=== PATIENT | female | born 2000 | race Caucasian/White ===

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

== ENCOUNTER → 2020-01-17 13:09 | Outpatient (BNVA) | payer MEDICAID, SELFPAY | PROVIDERS: Family Provider Nurse Practitioner Family; PCP Nurse Practitioner Family; Visit Provider Nurse Practitioner Women's Health | DX: O26.899 Other specified pregnancy related conditions, unspecified trimester (principal); Z67.91 Unspecified blood type, Rh negative | CPT/HCPCS: 81000 ==

== ENCOUNTER → 2020-01-30 16:02 | Outpatient (BNVA) | payer MEDICAID, SELFPAY | PROVIDERS: Family Provider Nurse Practitioner Family; PCP Nurse Practitioner Family; Visit Provider Obstetrics & Gynecology | DX: Z34.83 Encounter for supervision of other normal pregnancy, third trimester (principal) | CPT/HCPCS: 81000; 87081 ==

== ENCOUNTER → 2020-02-06 15:41 | Outpatient (BNVA) | payer MEDICAID, SELFPAY | PROVIDERS: Family Provider Nurse Practitioner Family; PCP Nurse Practitioner Family; Visit Provider Obstetrics & Gynecology | DX: O26.893 Other specified pregnancy related conditions, third trimester (principal); Z67.91 Unspecified blood type, Rh negative; Z3A.37 37 weeks gestation of pregnancy | CPT/HCPCS: 81000 ==

== ENCOUNTER → 2020-02-14 15:22 | Outpatient (BNVA) | payer MEDICAID, SELFPAY | PROVIDERS: Family Provider Nurse Practitioner Family; PCP Nurse Practitioner Family; Visit Provider Obstetrics & Gynecology | DX: O09.893 Supervision of other high risk pregnancies, third trimester; Z67.91 Unspecified blood type, Rh negative; Z3A.38 38 weeks gestation of pregnancy | CPT/HCPCS: 81000; 83986 ==

== ENCOUNTER 2020-02-22 08:37 | Inpatient (IN) | payer MEDICAID, SELFPAY ==
[2020-02-21] VITALS (14 sets, daily range): BP systolic 0–144; BP diastolic 0–90; PULSE 67–84; RESP 18; TEMP 36.9–37.1; BMI 25.7
[2020-02-22] VITALS (81 sets, daily range): BP systolic 0–140; BP diastolic 0–100; PULSE 64–88; RESP 16–18; TEMP 36.5–37; O2SAT 98–100; BMI 25.7
[2020-02-22 08:03] LABS: Basophils % 0.2 %; Eosinophils # 0.1 10^3/uL (0.0-0.8); Hemoglobin 10.9 g/dL (11.5-15.3); Lymphocytes # 1.9 10^3/uL (1.5-6.5); Lymphocytes % 23.3 %; Mean Corpuscular HGB Conc 31.1 g/dL (30.0-36.0); Mean Corpuscular Hemoglobin 26.7 pg (28.0-34.0); Mean Corpuscular Volume 85.8 fL (81-99); Mean Platelet Volume 13.1 fL (7.4-10.4); Monocytes # 0.9 10^3/uL (0.2-0.9); Monocytes % 10.6 %; Neutrophils # 5.37 10^3/uL (1.8-8.0); Neutrophils % 64.7 %; Nucleated Red Blood Cells % 0 %; Platelet Count 188 10^3/cmm (130-400); Positive M 1; Red Blood Count 4.08 10^6/uL (4.1-5.3); White Blood Count 8.3 10^3/uL (4.5-13.0)
[2020-02-22] MEDS: oxytocin 30 UNIT/500 ML BAG IV (13:15)
[2020-02-22] MEDS: dextrose 5%-lactated ringers 1,000 ML 125 ML IV (13:23)
[2020-02-22] MEDS: lactated ringers 1,000 ML 999 ML IV (15:23)
--- NOTE | 2020-02-22 16:05 | ANES.PREANE2 ---
Pre-Anesthetic Assessment Pre-Anesthetic Assessment: Height/Weight: Height 1.6 m Weight 65.771 kg Temp Pulse Resp BP 98.6 F 73 16 0/0 02/22/20 13:30 02/22/20 15:49 02/22/20 13:30 02/22/20 16:03 Preop Diagnosis: labor Proposed Procedure: Epidural Was Beta Elia taken within 24 hours: N/A Last Intake: 16:00 Social: Social History: No alcohol and No tobacco Exam: Pre-Anes Outpt Exam: alert, oriented x 3, clear to auscultation bilaterally and regular rate & rhythm Airway: Submandibular: WNL Cervical ROM: WNL MP: 2 Dentition: Full Pulmonary: Pulmonary: None reported CV/HEM: CV/HEM: None reported : : None reported Hepatic: Hepatic: None reported GI: GI: None reported Metabolic: Metabolic: None reported Musc/skel: Musc/skel: None reported Neuropsych: Neuropsych: None reported Anesthetic Plan: ASA status: 2 Anesthesia: Anesthesia Evaluation and Eval. for regional block Risk of > 500 ml blood loss (7ml/kg in children): No Meds/Allergies Current Medications: Current Medications Generic Name Dose Route Start Last Admin Trade Name Freq PRN Reason Stop Dose Admin Dextrose/Lactated Ringer's 1,000 mls @ 125 m ls/hr 02/22/20 07:45 02/22/20 15:24 Dextrose 5%-Lact ated Ringers IV 0 mls/hr .Q8H AIMEE Infusion Oxytocin 30 unit in 500 ml s @ 1 mls/hr 02/22/20 12:15 02/22/20 15:15 Pitocin IV 9 milliunit/min .Q24H AIMEE 9 mls/hr Titration Protocol 1 MILLIUNIT/MIN Lactated Ringer's 1,000 mls @ 999 m ls/hr 02/22/20 12:19 02/22/20 15:23 Lactated Ringers IV 999 mls/hr .Q1H1M PRN Administration hypotension PFSH Anesthesia PFSH: Medical History Encounter for supervision of other normal , second trimester Rh negative state in antepartum period Short interval between pregnancies affecting in first trimester, antepartum Surgical History History of appendectomy 08/2017 in [facility] Family History Mother Hypertension Father Hypertension Aneurysm Grandmother Hypertension Aneurysm Social History Smoking and tobacco status: former smoker Quit status (tobacco): has quit using tobacco Alcohol intake: never Female Reproductive History: : 2 Data Anesthesia CBC & Chem 7: 02/22/20 06:30 Other Labs: Laboratory Results - last 48 hr 02/22/20 06:30 WBC 8.3 RBC 4.08 L Hgb 10.9 L Hct 35.0 L MCV 85.8 MCH 26.7 L MCHC 31.1 RDW 13.0 Plt Count 188 MPV 13.1 H Neut % (Auto) 64.7 Lymph % (Auto) 23.3 [place] % (Auto) 10.6 Eos % (Auto) 1.0 Baso % (Auto) 0.2 Neut # (Auto) 5.37 Lymph # (Auto) 1.9 [place] # (Auto) 0.9 Eos # (Auto) 0.1 Baso # (Auto) 0.0 Nucleated RBC % (auto) 0 Nucleated RBCs # 0.0 Cardiac Studies: No Data to Display
--- NOTE | 2020-02-22 17:17 | ANES.PROC ---
Anesthesia Procedures Procedure/Date: 02/22/20 Epidural: Time Out Performed: Yes Consents Signed: Procedure Consent Consent: requested by attending/covering physician, from patient, risks and benefits reviewed and patient agrees to proceed Lumbar Level: L3-L4 Epidural position: sitting Epidural procedure: sterile prep of area (betadine), 1% lidocaine to numb the area (3ml), 18 g needle, neg for paresthesia, test dose given, 1.5% xylocaine 1:200k epi (5ml), 0.2% Ropivacaine bolus ml (5ml), placed PCEA, no systemic response, sterile dressing applied, L.U.D. no apparent complications and 0.2% Ropiavacaine @ mls/hr (10ml/hr)
--- NOTE | 2020-02-22 19:50 | P.PCNOB_ITS ---
Delivery Note: Date of delivery: February 22, 2020 Pre-delivery diagnoses: 1. Term at 39-5/7 weeks gestation 2. Rh negative status in third trimester. Post-delivery diagnoses: 1. Term at 39-5/7 weeks gestation. 2. Rh negative status - delivered. 3. Viable male . Procedure: Spontaneous vaginal delivery Op report anesthesia: Epidural Delivering Physician: Harinder Garcia MD Estimated blood loss (mL): 100 Pre-Delivery Course: Patient is a 19-year-old white female 2, para 1-0-0-1 with an LMP of 04/30/2019 and an EDC of 02/24/2020 based on ultrasound, which placed her at 39-4/7 weeks gestation at time of admission. Patient presented to labor and delivery at 16:40 on 02/21/2020 with complaints of contractions. She was reporting contractions every [address] arted at 6:00 in the morning. On initial exam, she was noted to be uneffaced and 1 cm dilated at a -3 station. She was watched for approximately 4 hours and made cervical change to 40% effaced and 1 to 2 cm dilation. Because things were going slow at the time, she was given morphine and Phenergan as a therapeutic sleeper. Patient slept through the night. By the morning of 02/21, she was 60% effaced and 2 cm dilated. She made minimal progression through the morning and had Pitocin started. She became more uncomfortable during the afternoon and had epidural placed.By mid afternoon, she started making cervical change. She had spontaneous rupture of membranes at 17:55 and was 90% effaced and 5 cm dilated prior to that. After rupturing, cervix had shrunk to 4 cm. The cervix then rapidly progressed and she was found to be completely dilated by 19:20. Following rupture of membranes, she developed variable decelerations with each contraction. Delivery: Patient started pushing at 19:27 and delivered at 19:37 as a spontaneous vaginal delivery of an occiput anterior male over an intact perineum under epidural anesthesia. Following delivery of the infant's head, the right hand was adjacent to the left cheek. The arm was swept out and the rest the baby delivered atraumatically with the left shoulder anterior. No nuchal cords were noted. The infant was placed on the mother's abdomen where the cord was clamped. It was cut by the reported father of the baby. Baby was spontaneously crying. Baby was left in the care of the waiting nurses. Cord blood was obtained. Pitocin bolus was started. Placenta delivered intact by simple expression at 19:42. The cervix and vagina were palpated and noted to be intact. The labia were inspected and noted to be intact except for a first- degree midline hymenal ring laceration and a first-degree right periurethral laceration. Both of these were hemostatic and required no repair. FINDINGS 1. Viable male weighing 7 lbs 10 oz (3465 g) with a length of 21 inches and Apgars of 9 at 1 minute and 9 at 5 minutes. 2. Three-vessel cord with no loops of nuchal cord noted. 3. Normal-appearing placenta with an eccentric cord insertion. Post-Delivery Status: Mother and infant were left to recover in satisfactory c ondition. A&P Assessment and plan (1) Term delivered: Status: Acute (2) Rh negative, delivered, current hospitalization: Status: Acute Coding Level of Care Code Acute Channel Machine Operator for Chg Fwd Diagnoses Term delivered O80 Rh negative, delivered, current hospitalization O26.899; Z67.91
[2020-02-23 00:40] VITALS: BP 122/72; PULSE 82; RESP 16; TEMP 36.7
[2020-02-23 01:40] VITALS: BP 121/72; PULSE 69; RESP 16; TEMP 36.6
--- NOTE | 2020-02-23 07:12 | PM.PN ---
Subjective Subjective: Interval history: Denies any problems or concerns. Reports pain is been well controlled on ibuprofen. Denies any lightheadedness or dizziness with ambulation. Denies any shortness of breath or chest pains. Reports tolerating regular diet without nausea or vomiting. Denies any problems with urination. States bleeding has decreased. Vitals/I&O/Wt Last Vital Signs Temp 97.8 F 02/23/20 01:40 Pulse 69 02/23/20 01:40 Resp 16 02/23/20 01:40 BP 121/72 02/23/20 01:40 Pulse Ox 98 02/22/20 16:32 02/22/20 02/23/20 02/23/20 22:59 06:59 14:59 Intake Total 259.083 / 261.583 Output Total 500 / 500 500 / 1000 Balance -240.917 / -238.417 -500 / -738.417 Weight last 48 hrs Weight 145 lb Weight 145 lb Physical Exam Const: COMMON NORMALS: no acute distress, average body habitus, alert and well nourished GENERAL APPEARANCE: well developed ORIENTATION/CONSCIOUSNESS: Yes oriented to person, Yes oriented to place and Yes oriented to time Resp: COMMON NORMALS: normal respiratory effort and clear to auscultation bilaterally AUSCULTATION: clear to auscultation bilaterally Cardio: COMMON NORMALS: regular rate, regular rhythm, No gallops present (Cardio) and No rub (Cardio) RATE: regular rate RHYTHM: regular rhythm GI: COMMON NORMALS: Soft to palpation, non-tender, No hepatosplenomegaly present and no masses (Except for nontender, firm uterus approximately 2 fingerbreadths below the umbilicus) AUSCULTATION: Yes normoactive bowel sounds PALPATION: Yes Soft to palpation, Yes No hepatosplenomegaly present and No Hernia present : EXTERNAL FEMALE EXAM: No Hernia present Extremity: COMMON NORMALS: no calf tenderness NARRATIVE EXTREMITY EXAM: Trace lower extremity edema bilaterally Neuro: SENSORIUM/ORIENTATION: Yes alert, Yes oriented to person, Yes oriented to place and Yes oriented to time Psych: COMMON NORMALS: normal affect MOOD & AFFECT: Yes euthymic mood Urinary Catheter Management^: Colon: Cath Placed During This Visit: yes Urinary Catheter Date of Insertion: 02/22/20 Urinary Catheter Time of Insertion: 16:41 Data : 07/22/20 06:30 A&P Assessment and plan (1) Term delivered: day 1, approximately 11 hours status post vaginal delivery Patient doing well at this time. Continue usual care. Probable discharge to home this evening. Discharge instructions discussed with her. Status: Acute (2) Rh negative, delivered, current hospitalization: Status: Acute (3) Anemia during , delivered, current hospitalization: Patient found to be mildly anemic on admission hemogram. CBC pending for today. Patient most likely will be going home on iron in addition to the vitamins. She is currently asymptomatic. Status: Acute Attestations Medical Necessity Statement*: Patient approximately 11 hours status post vaginal delivery. Coding Level of Care Code Acute Sampler And Test Preparer for [facility] Fwd Exam Detailed Diagnoses Term delivered O80 Rh negative, delivered, current hospitalization O26.899; Z67.91 Anemia during , delivered, current hospitalization O99.02
[2020-02-23 08:45] LABS: Hematocrit 35.6 % (37.0-47.0); Hemoglobin 11.3 g/dL (11.5-15.3); Mean Corpuscular HGB Conc 31.7 g/dL (30.0-36.0); Mean Corpuscular Hemoglobin 27.2 pg (28.0-34.0); Mean Corpuscular Volume 85.6 fL (81-99); Mean Platelet Volume 12.5 fL (7.4-10.4); Platelet Count 181 10^3/cmm (130-400); Red Blood Count 4.16 10^6/uL (4.1-5.3); Red Cell Distribution Width 13.2 % (12.1-15.1); White Blood Count 10.8 10^3/uL (4.5-13.0)
[2020-02-23] MEDS: prenatal vitamin Capsule 1 CAP PO (09:48)
[2020-02-23] MEDS: docusate sodium 100 mg Capsule PO (09:49)
[2020-02-23 09:51] VITALS: BP 121/89; PULSE 96; RESP 16; TEMP 36.7; O2SAT 96
[2020-02-23 15:53] VITALS: BP 137/90; PULSE 80; RESP 16; TEMP 36.6; O2SAT 98
--- NOTE | 2020-02-23 17:13 | PM.OBGYDC ---
Discharge Providers MONOMER RECOVERY OPERATOR Date of Admission: 02/22/20 08:37 Date of Discharge: 02/23/20 Attending Provider at Admission: Gina Elizabeth MD Attending Provider at Discharge: Harinder Garcia MD Primary Care Provider: COOPER Segal Diagnoses at Discharge Discharge Diagnosis (1) Term delivered: Status: Acute (2) Rh negative, delivered, current hospitalization: Status: Acute (3) Anemia during , delivered, current hospitalization: Status: Acute Reason for Visit Reason for Visit: Contractions Hospital Course Hospital Course: Patient is a 19-year-old white female 2, para 1-0-0-1 with an LMP of 04/30/2019 and an EDC of 02/24/2020 based on ultrasound, which placed her at 39-4/7 weeks gestation at the time of admission. She presented to labor and delivery on 02/21/2020 at 16:40 with complaint of contractions which had started at about 6:00 in the morning. She was initially 1 cm dilated and uneffaced. She was watched for approximately 4 hours and made slow cervical change. Since she was progressing so slowly, she was given a Phenergan and morphine sleeper and was slept through the night. In the morning of 02/21 she was 60% effaced and 2 cm dilated. She was started on Pitocin later in the morning due to making minimal change. She became more uncomfortable and had epidural placed. She started making cervical change and had spontaneous rupture membranes at 17:55. She was 5 cm dilated and 90% effaced at that time. She then rapidly progressed and was found to be completely dilated by 19:20. She started pushing at 19:27 and delivered at 19:37 as a spontaneous vaginal delivery of an occiput anterior male infant over an intact perineum under epidural anesthesia. Baby weighed 7 lbs 10 oz (3465 g) with a length of 21 inches and Apgars of 9 at 1 minute and 9 at 5 minutes. She had a first-degree hymenal ring laceration and a first-degree right periurethral laceration, both which were hemostatic and required no repair. Mother and did well following delivery. Day 1 Patient reported doing well. She denied problems with pain. She denied lightheadedness or dizziness with ambulation. She denied shortness of breath or chest pains. She reported tolerating a regular diet without nausea vomiting. She denied problems with urination. She reported that her bleeding had decreased. She was afebrile with stable vital signs. Activities were increased through the day. By the evening, she was requesting to go home. She was discharged to home. Discharge instructions discussed with her. She is to follow-up in the office in approximately 6 weeks for care. Information Peripartum Data: Infant Delivery Method: Vaginal complications: none Physical Exam Urinary Catheter Management^: Colon: Cath Placed During This Visit: yes Urinary Catheter Date of Insertion: 02/22/20 Urinary Catheter Time of Insertion: 16:41 Discharge Data Data Completed and Pending: Labs from last 24 hours 02/23/20 08:18 WBC 10.8 RBC 4.16 Hgb 11.3 L Hct 35.6 L MCV 85.6 MCH 27.2 L MCHC 31.7 RDW 13.2 Plt Count 181 MPV 12.5 H Vitals: Last Vital Signs Temp 97.9 F 02/23/20 15:53 Pulse 80 02/23/20 15:53 Resp 16 02/23/20 15:53 BP 137/90 02/23/20 15:53 Pulse Ox 98 02/23/20 15:53 Discharge Plan Discharge Patient Disposition: Home Condition: Stable Prescriptions: Continued prenat.vits,prasad,[id number] Tablet 1 tab PO DAILY RF: 0 Discharge Orders: Discharge Order (Routine); Ordered 02/23/20 Ordered By: Harinder Garcia Referrals: Michael Yang MD [Physician] - 6 Weeks Discharge Diet: Regular Discharge Activity: Resume usual activity Patient Instructions: OB Vaginal Deliveries - [facility] Activity Restrictions/Additional Instructions: May use [id number] ibuprofen 200 mg, 3 tablets 4 times a day or 4 tablets 3 times a day, as needed for pain. Discharge Attestations MONOMER RECOVERY OPERATOR Time Spent in Discharge Care*: less than 30 min Coding Level of Care Code Acute Roller Turner for Chg Fwd Diagnoses Term delivered O80 Rh negative, delivered, current hospitalization O26.899; Z67.91 Anemia during , delivered, current hospitalization O99.02
[2020-02-23 20:19] VITALS: BP 125/86; PULSE 85; RESP 16; TEMP 36.7
== END 2020-02-23 20:25 | disposition home or self-care (01) | DRG 807 ==
LOC: OPOB 08:38 → OBGYN 08:38
PROVIDERS: Obstetrics & Gynecology; Admitting Provider Obstetrics & Gynecology; Family Provider Nurse Practitioner Family; PCP Nurse Practitioner Family; Visit Provider Obstetrics & Gynecology
DX: O99.02 Anemia complicating childbirth (principal); Z37.0 Single live birth; D64.9 Anemia, unspecified; Z3A.39 39 weeks gestation of pregnancy; O70.0 First degree perineal laceration during delivery; O76 Abnormality in fetal heart rate and rhythm complicating labor and delivery
CPT/HCPCS: 12345; 36415; 51702; 59025; 59409; 85025; 85027; 99211; J2795

== ENCOUNTER → 2020-04-06 11:32 | Outpatient (BNVA) | payer MEDICAID, SELFPAY | PROVIDERS: Family Provider Nurse Practitioner Family; PCP Nurse Practitioner Family; Visit Provider Obstetrics & Gynecology | DX: Z01.812 Encounter for preprocedural laboratory examination (principal); Z30.9 Encounter for contraceptive management, unspecified | CPT/HCPCS: 81025 ==

== ENCOUNTER 2024-02-28 15:57 | Emergency (ER) | payer SELFPAY ==
[2024-02-28] VITALS (7 sets, daily range): BP systolic 125; BP diastolic 77; PULSE 76–91; RESP 17; TEMP 36.7; O2SAT 98–99; BMI 21.0
--- NOTE | 2024-02-28 16:07 | XRR_ITS ---
PROCEDURE INFORMATION: Exam: XR Left Knee Exam date and time: 02/28/2024 4:27 PM Age: 23 years old Clinical indication: Patient HX: Lt knee pain after horse landed on left leg; Open wound to left knee TECHNIQUE: Imaging protocol: Radiologic exam of the left knee. Views: 3 views. COMPARISON: No relevant prior studies available. FINDINGS: Bones/joints: Large left knee joint effusion. No dislocation. Nondisplaced fracture of the left lateral tibial plateau extending to the tibial spines with a small avulsed bone fragment at the tibial spines. Joint spaces are maintained. Normal bone mineralization. Soft tissues: Mild soft tissue swelling around the left knee. No radiopaque foreign body. XR/XR knee LT 3V* [id number] IMPRESSION: 1. Nondisplaced fracture of the left lateral tibial plateau extending to the tibial spines with a small avulsed bone fragment at the tibial spines. 2. Large left knee joint effusion. 3. Mild soft tissue swelling around the left knee.
--- NOTE | 2024-02-28 16:07 | CTR_ITS ---
PROCEDURE INFORMATION: Exam: CT Head Without Contrast Exam date and time: 02/28/2024 4:58 PM Age: 23 years old Clinical indication: Injury or trauma; Other: Horse wreck; Blunt trauma (contusions or hematomas); With loss of consciousness; Loss of consciousness for 30 minutes or less; Injury details: PT arrives via [facility] post fall of a horse. PT states she was riding her horse who got spooked and started running and tripped and fell with PT. Horse landed onto PT left leg. PT hit head and had loc but unsure how long. PT has multiple abrasions on hands, knees, and shoulder. PT has abrasion to left upper cheek. ; Additional info: Fall, head injury TECHNIQUE: Imaging protocol: Computed tomography of the head without contrast. Radiation optimization: All CT scans at this facility use at least one of these dose optimization techniques: automated exposure control; mA and/or kV adjustment per patient size (includes targeted exams where dose is matched to clinical indication); or iterative reconstruction. COMPARISON: No relevant prior studies available. RADIATION DOSE METRICS: Total DLP (mGy-cm): 979.58 FINDINGS: Brain: No acute intracranial hemorrhage. No acute infarct. No intra-axial or extra-axial masses. Duuqe-white matter differentiation is preserved. No cerebral edema. No extra-axial fluid collections. No midline shift. No evidence for Chiari 1 malformation. Cerebral ventricles: No hydrocephalus. Paranasal sinuses: Visualized paranasal sinuses are clear. Mastoid air cells: Visualized mastoid air cells are clear. Orbital cavities: No acute abnormality in the visualized orbits. Bones: Unremarkable. No acute fracture. Soft tissues: The extracranial soft tissues are unremarkable. CT/CT head wo con* [id number] IMPRESSION: Negative CT scan of the brain.
--- NOTE | 2024-02-28 16:09 | W.ED.TRAUMA ---
HPI - Trauma General: Chief Complaint: Trauma Stated Complaint: left knee pain s/p horse wreck Time Seen by Provider: 02/28/24 16:00 History of Present Illness: Healthy 23-year-old female who presents the emergency room after having an accident with her horse. Apparently some dogs chased the horse and it fell over and she rolled with it. Does not sound like it landed on her body. She has abrasions all over. Hands, arms, face, knees. She has no chest pain. No back pain. He reports he lost consciousness for maybe 30 seconds. She has had some mild nausea but no vomiting. No altered mental status. No focal motor deficits. Her main complaint is tenderness on the medial side of her left knee. There is a bruise there. Review of Systems Narrative: Constitutional symptoms: Negative except as documented in HPI. Skin symptoms: Negative except as documented in HPI. Eye symptoms: Negative except as documented in HPI. ENMT symptoms: Negative except as documented in HPI. Respiratory symptoms: Negative except as documented in HPI. Cardiovascular symptoms: Negative except as documented in HPI. Gastrointestinal symptoms: Negative except as documented in HPI. Genitourinary symptoms: Negative except as documented in HPI. Musculoskeletal symptoms: Negative except as documented in HPI. Neurologic symptoms: Negative except as documented in HPI. Psychiatric symptoms: Negative except as documented in HPI. Endocrine symptoms: Negative except as documented in HPI. [facility] ED PFSH: Medical History (Updated 02/28/24 @ 18:36 by Jacinda Reed MD) examination following vaginal delivery Short interval between pregnancies affecting in first trimester, antepartum Rh negative state in antepartum period Encounter for supervision of other normal , second trimester Surgical History History of appendectomy 08/2017 in [facility] Family History Mother Hypertension Father Hypertension Aneurysm Grandmother Hypertension Aneurysm Social History Smoking and tobacco/nicotine status: former use of tobacco/nicotine Quit status (tobacco/nicotine): has quit using Alcohol intake: never Substance/Drug Use: never Physical Exam Narrative: EXAM NARRATIVE: General: Alert, no acute distress. Skin: Warm, dry. Patient has abrasion on her left cheek, abrasions on her left knee. With 2 superficial lacerations on the left knee. There are some bruising on the medial side of the left knee. There is a mild abrasion on the right knee. There are several abrasions on her dorsal hands and fingers. Head: Normocephalic, atraumatic. Neck: Supple, trachea midline. No bony tenderness, no step-offs. I removed cervical collar. Back: No bruises. No abrasions. No bony tenderness. No step-offs. Eye: Extraocular movements are intact. Ears, nose, mouth and throat: mucosa moist. Cardiovascular: Regular, Normal peripheral perfusion. Respiratory: Lungs are clear to auscultation, respirations are non-labored, breath sounds are equal, Symmetrical chest wall expansion. Gastrointestinal: Soft, Nontender, Non distended Musculoskeletal: Normal ROM, no deformity. Neurological: Alert and oriented, No focal neurological deficit observed. Psychiatric: Cooperative, appropriate mood & affect. Course Vital Signs: Vital signs: Vital Signs Temperature 98.0 F 02/28/24 16:03 Pulse Rate 82 02/28/24 19:30 Respiratory Rate 17 02/28/24 16:38 Blood Pressure 125/77 02/28/24 16:03 Pulse Oximetry 98 02/28/24 19:30 Oxygen Delivery Me thod Room Air 02/28/24 16:03 MDM - Trauma Medical Decision Making X-ray of the right knee shows nondisplaced fracture of the left lateral tibial plateau. There is a large joint effusion. Orthopedics recommends CT scan. CT head: No acute intracranial process. no intracranial hemorrhage, no evidence of infarct. no evidence of acute fracture.This was reviewed and interpreted by myself the ER physician. CT of the left knee: Mildly comminuted nondisplaced fracture of the lateral plateau of the left tibia. This extends across midline to the posterior aspect of the left medial tibial plateau. There is a small avulsed bone fragment off the lateral left tibial spine. This was reviewed and interpreted by myself the emergency room physician. I also reviewed the radiology report. Assessment and plan: Tibial plateau fracture Head injury with loss of consciousness Thrown from horse Multiple skin abrasions over numerous sites of the body. -[place] in the emergency room. Toradol and Zofran. - Discharged home - Discussed plan with patient. Answered any questions. - Evaluation and treatment of this problem were appropriate in the emergency setting. Lab Data Radiology Impressions Head CT 02/28/24 16:07 IMPRESSION: Negative CT scan of the brain. Knee X-Ray 02/28/24 16:07 IMPRESSION: 1. Nondisplaced fracture of the left lateral tibial plateau extending to the tibial spines with a small avulsed bone fragment at the tibial spines. 2. Large left knee joint effusion. 3. Mild soft tissue swelling around the left knee. Knee CT 02/28/24 18:15 IMPRESSION: 1. Mildly comminuted, nondisplaced fracture of the lateral plateau of the left tibia. The fracture extends across the midline to the posterior aspect of the left medial tibial plateau. There is a small avulsed bone fragment off of the lateral left tibial spine, the remainder of the fracture is nondisplaced will. Findings suggest a type 4 tibial plateau fracture. 2. Mild subcutaneous contusion anterior and medial to the left knee with a small laceration anterior to the left knee. 3. Large left knee hemarthrosis. All radiology interpretation(s) finalized by discharge Discharge Plan Discharge Patient Disposition: Home Clinical Impression: Skin abrasion Closed fracture of tibial plateau Qualifiers: Encounter type: initial encounter Laterality: left Qualified Code(s): S82.142A - Displaced bicondylar fracture of left tibia, initial encounter for closed fracture Acute head injury with loss of consciousness Qualifiers: Encounter type: initial encounter Qualified Code(s): S06.9X9A - Unspecified intracranial injury with loss of consciousness of unspecified duration, initial encounter Fall from horse Qualifiers: Encounter type: initial encounter Qualified Code(s): V80.010A - Animal-rider injured by fall from or being thrown from horse in noncollision accident, initial encounter Condition: Stable Prescriptions: New cyclobenzaprine 10 mg tablet 10 mg PO Q8H Qty: 20 0RF hydrocodone-acetaminophen 5-325 mg tablet 1 tab PO Q6H PRN (Reason: pain) Qty: 20 0RF ondansetron 8 mg tablet,disintegrating 8 mg PO .q6 PRN (Reason: nausea and vomiting) Qty: 14 0RF diclofenac sodium 50 mg tablet,delayed release (DR/EC) 50 mg PO BID PRN (Reason: pain) Qty: 30 0RF Miralax 17 gram/dose powder 17 g PO DAILY Qty: 510 0RF Rx Instructions: Take 1 scoop daily while taking pain medications. cyclobenzaprine 10 mg tablet 10 mg PO Q8H Qty: 20 0RF hydrocodone-acetaminophen 5-325 mg tablet 1 tab PO Q6H PRN (Reason: pain) Qty: 20 0RF ondansetron 8 mg tablet,disintegrating 8 mg PO .q6 PRN (Reason: nausea and vomiting) Qty: 14 0RF diclofenac sodium 50 mg tablet,delayed release (DR/EC) 50 mg PO BID PRN (Reason: pain) Qty: 14 0RF Miralax 17 gram/dose powder 17 g PO DAILY Qty: 510 0RF Rx Instructions: Take 1 scoop daily while taking pain medications. Discharge Orders: Discharge ED (Routine); Ordered 02/28/24 Ordered By: Jacinda Reed Referrals: Vinicio Greene DO [Physician] - 7-10 days (Please call for an appointment with Dr. Greene. You can call his clinic first thing tomorrow morning to schedule the appointment.) Shonna Rangel FNP [Primary Care Provider] - Discharge Diet: Usual diet Discharge Activity: Limit activity as instructed Patient Instructions: Opioid Safety, Pain Management Activity Restrictions/Additional Instructions: Nonweightbearing, use crutches at all times for walking. Knee immobilizer at all times except for when bathing. Thank you for choosing [facility] for your healthcare needs today. Please realize this is an emergency room and that we are providing you with a medical screening exam and this may not be complete and all inclusive of all the testing and or work up that you may need to determine your ailment or severity of your illness. You have been screened and evaluated and felt safe for discharge. Health conditions do change or evolve sometimes and as such it is important that you follow up with your Primary Doctor to be re checked, 3-5 days is a general good time frame for follow up. You are always welcome to return to the ED for re assessment if your symptoms are worsening or you have new concerns Coding Level of Care Code ED Waistline Joiner for Elena Faye
[2024-02-28] MEDS: tetanus-dipt-pertussis 0.5 mL SDV IM (16:21)
[2024-02-28] MEDS: HYDROcodone-acetaminophen 10-325 mg Tablet 1 TAB PO (17:17)
[2024-02-28] MEDS: ondansetron 2 mg/ML SDV 2 mL 4 MG IVP (17:17)
--- NOTE | 2024-02-28 18:15 | CTR_ITS ---
PROCEDURE INFORMATION: Exam: CT Left Lower Extremity Without Contrast, Knee Exam date and time: 02/28/2024 6:22 PM Age: 23 years old Clinical indication: Injury or trauma; Fall; Blunt trauma; Knee; Left; Patient HX: Patient fell off of horse. Tibial plateau FX noted on XR. ; Additional info: Ortho request TECHNIQUE: Imaging protocol: CT of the left lower extremity without contrast was performed. Exam focused on the knee. Sagittal and coronal reformatted images were created and reviewed. Radiation optimization: All CT scans at this facility use at least one of these dose optimization techniques: automated exposure control; mA and/or kV adjustment per patient size (includes targeted exams where dose is matched to clinical indication); or iterative reconstruction. COMPARISON: CR (LOW EXM, ) 02/28/2024 4:27 PM RADIATION DOSE METRICS: Total DLP (mGy-cm): 420.26 FINDINGS: Bones/joints: Large left knee joint effusion with a fluid-fluid level, consistent with very hemarthrosis. No dislocation. Normal bone mineralization. Mildly comminuted, nondisplaced fracture of the lateral plateau of the left tibia. The fracture extends across the midline to the posterior aspect of the left medial tibial plateau. There is a small avulsed bone fragment off of the lateral left tibial spine, the remainder of the fracture is nondisplaced (series 6, images 40-50 and series 3, images 44-52). Soft tissues: Mild subcutaneous contusion anterior and medial to the left knee with a small laceration anterior to the left knee. No radiopaque foreign body. CT/CT knee LT wo con* [id number] IMPRESSION: 1. Mildly comminuted, nondisplaced fracture of the lateral plateau of the left tibia. The fracture extends across the midline to the posterior aspect of the left medial tibial plateau. There is a small avulsed bone fragment off of the lateral left tibial spine, the remainder of the fracture is nondisplaced will. Findings suggest a type 4 tibial plateau fracture. 2. Mild subcutaneous contusion anterior and medial to the left knee with a small laceration anterior to the left knee. 3. Large left knee hemarthrosis.
== END 2024-02-28 19:33 | disposition home or self-care (01) ==
PROVIDERS: Emergency Provider Emergency Medicine; Family Provider Nurse Practitioner Family; PCP Nurse Practitioner Family
DX: S82.142A Displaced bicondylar fracture of left tibia, initial encounter for closed fracture (principal); S06.9X9A Unspecified intracranial injury with loss of consciousness of unspecified duration, initial encounter; S00.81XA Abrasion of other part of head, initial encounter; S80.211A Abrasion, right knee, initial encounter; S81.012A Laceration without foreign body, left knee, initial encounter; Z87.891 Personal history of nicotine dependence; S60.512A Abrasion of left hand, initial encounter; S60.511A Abrasion of right hand, initial encounter; S60.419A Abrasion of unspecified finger, initial encounter; V80.010A Animal-rider injured by fall from or being thrown from horse in noncollision accident, initial encounter; Z23 Encounter for immunization
CPT/HCPCS: 29530; 70450; 73562; 73700; 90471; 90715; 96374; 99284; J2405